=== PATIENT | female | born 2000 | race Caucasian/White ===

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

== ENCOUNTER 2023-03-03 10:34 | Emergency (ER) | payer OTHER ==
[2023-03-03 10:42] VITALS: BMI 27.3
[2023-03-03] MEDS ORDERED: ACETAMINOPHEN 325 MG TABLET (FP) PO ONE (11:33)
[2023-03-03] MEDS ORDERED: ACETAMINOPHEN 325 MG TABLET (FP) ONE (11:40)
[2023-03-03 12:23] LABS: EPI CELLS 36 /uL (0-25.1); HYALINE CASTS 0 /uL (0-3.1); PH,URINE 6.5 (5.0-8.0); URINE APPEARANCE CLEAR; URINE BACTERIA 955 /uL (0-1359); URINE BILIRUBIN NEGATIVE (NEGATIVE); URINE COLOR YELLOW; URINE GLUCOSE (UA) NEGATIVE (NEGATIVE); URINE KETONE NEGATIVE (NEGATIVE); URINE LEUK ESTERASE TRACE (NEGATIVE); URINE NITRITE NEGATIVE (NEGATIVE); URINE PROTEIN NEGATIVE (NEGATIVE); URINE RBC 10 /uL (0-23.9); URINE UROBILINOGEN 0.2 mg/dL (0.2-1.0); URINE WBC 16 /uL (0-25.8)
[2023-03-03 12:27] LABS: BASO % 0.3 % (0-2.0); EOS % 0.6 % (0-4.5); HEMATOCRIT 28.8 % (32.4-45.2); HEMOGLOBIN 9.6 GM/dL (10.7-15.3); LYMPH % 18.7 % (8-40); MCH 22.9 pg (25.7-33.7); MCHC 33.2 g/dl (32.0-36.0); MEAN CELL VOLUME 68.8 fl (80-96); MEAN PLT VOLUME 9.7 fl (7.5-11.1); MONO % 5.7 % (3.8-10.2); NEUT % 74.7 % (42.8-82.8); PLATELET COUNT 185 10^3/uL (134-434); RBC 4.19 M/mm3 (3.60-5.2); RDW 17.6 % (11.6-15.6); WHITE BLOOD COUNT 6.3 K/mm3 (4.0-10.0)
[2023-03-03 12:48] LABS: ALBUMIN 2.8 g/dl (3.4-5.0); BLOOD UREA NITROGEN 5.6 mg/dL (7-18); MAGNESIUM 1.9 mg/dL (1.8-2.4)
[2023-03-03 12:51] LABS: CREATININE 0.4 mg/dL (0.55-1.3)
[2023-03-03 12:53] LABS: BILIRUBIN,TOTAL 0.4 mg/dL (0.2-1); TOT PROT 6.4 g/dl (6.4-8.2)
[2023-03-03 13:57] VITALS: BP 125/77; PULSE 88; RESP 18; TEMP 98.1
== END 2023-03-03 14:40 | disposition home or self-care (01) ==
LOC: JER 10:34
DX: O23.43 Unspecified infection of urinary tract in pregnancy, third trimester (principal); O26.893 Other specified pregnancy related conditions, third trimester; R22.41 Localized swelling, mass and lump, right lower limb; Z3A.38 38 weeks gestation of pregnancy
CPT/HCPCS: 36415; 80053; 81003; 83735; 85025; 87086; 93971-TC; 99284-25

== ENCOUNTER 2023-03-19 10:50 | Inpatient (IN) | payer OTHER ==
[2023-03-19] MEDS: ELECTROLYTE-148 SOLN 1,000 ML IV SCH (12:00)
[2023-03-19] MEDS ORDERED: OXYTOCIN 20 UNITS in 0.9% NS 20 UNIT/1,000 ML INFUS.BAG IV ONE ×2 (12:02→16:04)
[2023-03-19 12:14] LABS: INR 0.98 (0.83-1.09); PROTHROMBIN TIME (PATIENT) 11.4 SEC (9.7-13.0)
[2023-03-19 12:15] LABS: BASO % 0.3 % (0-2.0); EOS % 0.4 % (0-4.5); HEMATOCRIT 30.8 % (32.4-45.2); HEMOGLOBIN 9.9 GM/dL (10.7-15.3); MCH 22.1 pg (25.7-33.7); MCHC 32.2 g/dl (32.0-36.0); MEAN CELL VOLUME 68.6 fl (80-96); MEAN PLT VOLUME 9.1 fl (7.5-11.1); MONO % 4.4 % (3.8-10.2); NEUT % 81.9 % (42.8-82.8); PLATELET COUNT 202 10^3/uL (134-434); RBC 4.49 M/mm3 (3.60-5.2); RDW 17.7 % (11.6-15.6); WHITE BLOOD COUNT 9.8 K/mm3 (4.0-10.0)
[2023-03-19 12:16] LABS: ACTIVATED PTT 29.5 SECONDS (25.2-36.5)
[2023-03-19] MEDS ORDERED: ACETAMINOPHEN 325 MG TABLET (FP) PO PRN (12:27)
[2023-03-19] MEDS ORDERED: BISACODYL 10 MG SUPP.RECT RC PRN (12:27)
[2023-03-19] MEDS ORDERED: WITCH HAZEL 50% (TUCKS) 40 PAD/JAR PAD TP PRN (12:27)
[2023-03-19] MEDS ORDERED: BENZOCAINE 28 GM HEMORRHOIDAL OINTMENT TP PRN (12:27)
[2023-03-19] MEDS ORDERED: BENZOCAINE 20% 57 GM BOTTLE TP PRN (12:27)
[2023-03-19] MEDS ORDERED: METHYLERGONOVINE MALEATE 0.2 MG/1 ML AMP IM PRN (12:27)
[2023-03-19] MEDS ORDERED: oxyCODONE HCL 5 MG TABLET PO PRN (12:27)
[2023-03-19] MEDS ORDERED: OXYTOCIN 20 UNITS in 0.9% NS 20 UNIT/1,000 ML INFUS.BAG IV SCH (12:30)
[2023-03-19 12:33] VITALS: BMI 27.3
[2023-03-19] MEDS ORDERED: BUTORPHANOL TARTRATE 1 MG/ML VIAL IVPB ONE (12:33)
[2023-03-19] MEDS ORDERED: PROMETHAZINE HCL 25 MG/1 ML VIAL IVPB ONE (12:33)
[2023-03-19 12:55] LABS: POTASSIUM 3.2 mmol/L (3.5-5.1)
[2023-03-19 12:57] LABS: ALBUMIN 2.7 g/dl (3.4-5.0); BLOOD UREA NITROGEN 6.4 mg/dL (7-18); CALCIUM 8.7 mg/dL (8.5-10.1)
[2023-03-19 13:00] LABS: CREATININE 0.5 mg/dL (0.55-1.3)
[2023-03-19 13:02] LABS: BILIRUBIN,TOTAL 0.3 mg/dL (0.2-1); TOT PROT 6.5 g/dl (6.4-8.2)
[2023-03-19 13:15] LABS: HEPATITIS B SURFACE AG MATERN NON-REACTIVE (NONREACTIVE)
[2023-03-19] MEDS ORDERED: FENTANYL/BUPIVACAINE/NS/PF - PCEA - 50 ML DISP.SYRIN EP ONE (13:18)
[2023-03-19] MEDS ORDERED: FENTANYL CITRATE/PF 50 MCG/ML VIAL ONE (13:32)
[2023-03-19] MEDS ORDERED: BUPIVACAINE HCL/PF 0.25% (2.5MG/ML) 10 ML VIAL ONE (13:33)
[2023-03-19] MEDS ORDERED: LIDO 2%/EPI 1:200000 PRESRVFRE (20 ML SDVIAL) ONE (13:33)
[2023-03-19 13:43] LABS: HIV INTERPRETATION NEGATIVE (NEGATIVE)
[2023-03-19] MEDS ORDERED: NALOXONE HCL 0.4 MG/ML VIAL IVPUSH PRN (13:57)
[2023-03-19] MEDS: FENTANYL/BUPIVACAINE/NS/PF - PCEA - 50 ML DISP.SYRIN EP SCH (14:00)
[2023-03-19 15:19] LABS: CORD BASE EXCESS -2.6 mmol/L (0-2); CORD HCO3 23.6 mmHg (20-29); CORD PCO2 45.7 mmHg (30-78); CORD pH 7.33 (7.14-7.44)
[2023-03-19 15:22] LABS: CORD HCO3 23.5 mmHg (20-29); CORD PCO2 56.9 mmHg (30-78); CORD pH 7.233 (7.14-7.44)
[2023-03-19] MEDS: FERROUS SO4 325 MG TABLET (FP) PO SCH (18:01)
[2023-03-19] MEDS: IBUPROFEN 600 MG TABLET (FP) PO PRN (20:28)
[2023-03-20 07:19] LABS: BASO % 0.3 % (0-2.0); EOS % 0.8 % (0-4.5); HEMATOCRIT 22.6 % (32.4-45.2); HEMOGLOBIN 7.5 GM/dL (10.7-15.3); LYMPH % 21.4 % (8-40); MCH 22.5 pg (25.7-33.7); MEAN CELL VOLUME 68.4 fl (80-96); MEAN PLT VOLUME 9.7 fl (7.5-11.1); MONO % 6.4 % (3.8-10.2); NEUT % 71.1 % (42.8-82.8); PLATELET COUNT 148 10^3/uL (134-434); RBC 3.31 M/mm3 (3.60-5.2); RDW 17.6 % (11.6-15.6); WHITE BLOOD COUNT 8.3 K/mm3 (4.0-10.0)
[2023-03-20] MEDS: FERROUS SO4 325 MG TABLET (FP) PO SCH ×3 (09:10→17:03)
[2023-03-20] MEDS: PRENATAL VITAMINS W/ FOLIC ACID TABLET (FP) PO SCH (09:10)
[2023-03-20 11:03] VITALS: RESP 18
[2023-03-20] MEDS: ELECTROLYTE-148 SOLN 1,000 ML IV SCH (11:30)
[2023-03-20] MEDS: FENTANYL/BUPIVACAINE/NS/PF - PCEA - 50 ML DISP.SYRIN EP SCH (13:56)
[2023-03-20] MEDS: IBUPROFEN 600 MG TABLET (FP) PO PRN (20:51)
[2023-03-20] MEDS ORDERED: SENNOSIDES/DOCUSATE COMBO (SENNA PLUS) TABLET (UD) PO PRN (22:00)
[2023-03-21] MEDS: PRENATAL VITAMINS W/ FOLIC ACID TABLET (FP) PO SCH (09:06)
[2023-03-21] MEDS: FERROUS SO4 325 MG TABLET (FP) PO SCH (09:06)
[2023-03-21 09:08] VITALS: BP 118/78; PULSE 98; TEMP 97.7
== END 2023-03-21 10:15 | disposition home or self-care (01) | DRG 560 ==
LOC: JDEL 10:50 → JLDR 11:24 → J3W 16:36
PROVIDERS: ADMIT Obstetrics & Gynecology; ATTEND Obstetrics & Gynecology
PROC: 10E0XZZ Delivery of Products of Conception, External Approach (ICD-10-PCS; principal; 2023-03-19)
PROC: 0HQ9XZZ Repair Perineum Skin, External Approach (ICD-10-PCS; 2023-03-19)
DX: O48.0 Post-term pregnancy (principal); O70.0 First degree perineal laceration during delivery; Z3A.40 40 weeks gestation of pregnancy; Z37.0 Single live birth
CPT/HCPCS: 36415; 36600; 80048; 80053; 82803; 85025; 85610; 85730; 86780; 86850; 86900; 86901; 87340; 87389; C9803-CS; U0003; U0005